=== PATIENT | female | born 1960 ===

== ENCOUNTER 2018-12-04 00:20 | Emergency (ER) | payer SELFPAY ==
[2018-12-04 00:39] VITALS: TEMP 98.8
[2018-12-04] MEDS ORDERED: Sodium Chloride 0.9% 1,000 ML IV STA (00:55)
[2018-12-04] MEDS ORDERED: Alum-Mag Hydrox-Simethicone Susp (30 mL) PO ONE (00:55)
[2018-12-04 01:32] LABS: BASO # 0.1 K/uL (0.0-0.2); BASO % 0.9 % (0.0-2.0); EOS # 0.1 K/uL (0.0-0.7); EOS % 1.5 % (0.0-4.0); HEMOGLOBIN 11.9 g/dL (12.0-16.0); LYMPH # 2.3 K/uL (1.0-4.3); MEAN CELL VOLUME 80.3 fl (81.0-99.0); MEAN CORPUSCULAR HEMOGLOBIN 25.9 pg (27.0-31.0); MEAN CORPUSCULAR HGB CONC 32.3 g/dL (33.0-37.0); MEAN PLATELET VOLUME 10.3 fl (7.2-11.7); MONO # 0.6 K/uL (0.0-0.8); MONO % 6.7 % (0.0-10.0); NEUT # 5.8 K/uL (1.8-7.0); NEUT % 64.9 % (50.0-75.0); NRBC % 0.2 % (0.0-0.0); RBC 4.58 Mil/uL (3.80-5.20); RED CELL DISTRIBUTION WIDTH 14.4 % (11.5-14.5)
[2018-12-04] MEDS ORDERED: Alum-Mag Hydrox-Simethicone Susp (30 mL) ONE (01:36)
[2018-12-04 01:39] LABS: ALB/GLOB RATIO 1.1 (1.0-2.1); ALBUMIN 4.7 g/dL (3.5-5.0); ALT/SGPT 142 U/L (9-52); AST/SGOT 444 U/L (14-36); BLOOD UREA NITROGEN 29 mg/dl (7-17); CALCIUM 10.4 mg/dL (8.4-10.2); GFR NON-AFRICAN AMERICAN > 60; LIPASE 267 U/L (23-300)
--- NOTE | 2018-12-04 01:47 | ED PDOC ---
HPI: Abdomen Time Seen by Provider: 12/04/18 00:39 Chief Complaint (Nursing): Abdominal Pain Chief Complaint (Provider): Abdominal Pain History Per: Patient History/Exam Limitations: no limitations Onset/Duration Of Symptoms: Hrs Additional Complaint(s): 58 y/o female with history of diabetes and HTN presents to the ED complaining of abdominal pain and distension. Patient reports she developed abdominal pain about 15 minutes after she had diner and it is associated with distension of her abdomen. Patient states she took alla seltzer with lemon and reports some improvement of symptoms. She denies vomiting, diarrhea, fever, chest pain, or shortness of breath. Past Medical History Reviewed: Historical Data, Nursing Documentation, Vital Signs Vital Signs: Last Vital Signs Temp 98.8 F 12/04/18 00:35 Pulse 106 H 12/04/18 00:35 Resp 18 12/04/18 00:35 BP 195/82 H 12/04/18 00:35 Pulse Ox 98 12/04/18 00:35 - Medical History PMH: Diabetes, HTN - Surgical History Surgical History: - Family History Family History: States: Unknown Family Hx - Social History Current smoker - smoking cessation education provided: No Alcohol: None Drugs: Denies - Home Medications Home Medications: Ambulatory Orders Medication Instructions Recorded Esomeprazole Magnesium [Nexium] 20 mg PO QAM #14 ecc 12/04/18 Ondansetron ODT [Zofran ODT] 4 mg PO Q6 PRN #10 odt 12/04/18 - Allergies Allergies/Adverse Reactions: Allergies Allergy/AdvReac Type Severity Reaction Status Date / Time No Known Allergies Allergy Verified 12/04/18 00:35 Review of Systems ROS Statement: Except As Marked, All Systems Reviewed And Found Negative Constitutional: Negative for: Fever Cardiovascular: Negative for: Chest Pain Respiratory: Negative for: Shortness of Breath Gastrointestinal: Positive for: Abdominal Pain. Negative for: Vomiting, Diarrhea Physical Exam - Reviewed Nursing Documentation Reviewed: Yes Vital Signs Reviewed: Yes - Physical Exam Appears: Positive for: Well, Non-toxic, No Acute Distress Head Exam: Positive for: ATRAUMATIC, NORMAL INSPECTION, NORMOCEPHALIC Skin: Positive for: Normal Color, Warm, DRY Eye Exam: Positive for: EOMI, Normal appearance, PERRL ENT: Positive for: Normal ENT Inspection Neck: Positive for: Normal, Painless ROM Cardiovascular/Chest: Positive for: Regular Rate, Rhythm. Negative for: Murmur Respiratory: Positive for: Normal Breath Sounds. Negative for: Respiratory Distress Gastrointestinal/Abdominal: Positive for: Tenderness (epigastric), Distended (mild) Back: Positive for: Normal Inspection Extremity: Positive for: Normal ROM. Negative for: Pedal Edema, Deformity Neurological/Psych: Positive for: Awake, Alert, Normal Tone. Negative for: Motor/Sensory Deficits - Laboratory Results Result Diagrams: 12/04/18 01:16 12/04/18 01:16 Lab Results: Total Bilirubin 0.5 mg/dl (0.2-1.3) 12/04/18 01:16 AST 444 U/L (14-36) H 12/04/18 01:16 ALT 142 U/L (9-52) H 12/04/18 01:16 Alkaline Phosphatase 162 U/L (38-126) H 12/04/18 01:16 Total Protein 9.0 G/DL (6.3-8.2) H 12/04/18 01:16 Albumin 4.7 g/dL (3.5-5.0) 12/04/18 01:16 Globulin 4.3 gm/dL (2.2-3.9) H 12/04/18 01:16 Albumin/Globulin Ratio 1.1 (1.0-2.1) 12/04/18 01:16 Lipase 267 U/L (23-300) 12/04/18 01:16 - ECG O2 Sat by Pulse Oximetry: 98 (RA) Pulse Ox Interpretation: Normal Medical Decision Making Medical Decision Making: Time:00:40 Initial Impression:58 y/o with acute epigastric pain and abdominal distension Initial Plan: * CT Abd Pelvis * Labs * Maalox 30 ml * IV Fluids * Pepcid 20 mg 03:43 CT Abd Pelvis COMMENTS: Distended bladder suggestive of retention. Fluid-filled distended stomach suggestive of gastroparesis. Constipation. Mild bilateral hydroureteronephrosis secondary to distended bladder. Hepatomegaly with hepatic steatosis. There is no intra or extrahepatic biliary ductal dilatation. The spleen is normal. The gallbladder is within normal limits. The pancreas is of normal contour and attenuation characteristics. There is no evidence of adrenal mass. Both kidneys demonstrate prompt and equal nephrograms. The kidneys are normal in size, shape and configuration. There is no evidence of renal or ureteral mass. No renal or ureteral calculi are identified. No evidence for appendicitis. There is no bowel wall thickening. No evidence for small or large bowel obstruction. There is no evidence of abdominal ascites or lymphadenopathy. There is no evidence of intrinsic or extrinsic bladder mass. There is no pelvic ascites or lymphadenopathy. Images of the lung bases show no evidence of pleural or parenchymal mass. There are no pleural effusions. The bony structures are free of lytic or blastic lesions. IMPRESSION: Distended bladder suggestive of retention. Fluid-filled distended stomach suggestive of gastroparesis. Constipation. Mild bilateral hydroureteronephrosis secondary to distended bladder. Hepatomegaly with hepatic steatosis. 04:46 Labs reviewed are significant for elevated hepatic function however patient states symptoms have resolved and she feels well enough for discharge. Patient will follow up with GI specialist. Diagnosis is gastritis. Scribe Attestation: Documented by Suraj Longoria, acting as a scribe forDrManda Olmstead MD Provider Scribe Attestation: All medical record entries made by the Scribe were at my direction and personally dictated by me. I have reviewed the chart and agree that the record accurately reflects my personal performance of the history, physical exam, medical decision making, and the department course for this patient. I have also personally directed, reviewed, and agree with the discharge instructions and disposition. Disposition - Clinical Impression Clinical Impression: Gastritis - Patient ED Disposition Is Patient to be Admitted: No - Disposition Referrals: Tyson Kaufman MD [Staff Provider] - Disposition Time: 04:46 Condition: STABLE Additional Instructions: KRISTAL VARGAS DE SAPP, thank you for letting us take care of you today. Your provider was Sarwat Olmstead MD and you were treated for ABD PAIN. The emergency medical care you received today was directed at your acute symptoms. If you were prescribed any medication, please fill it and take as directed. It may take several days for your symptoms to resolve. Return to the Emergency Department if your symptoms worsen, do not improve, or if you have any other problems. Please contact your doctor or call one of the physicians/clinics you have been referred to that are listed on the Patient Visit Information form that is included in your discharge packet. Bring any paperwork you were given at [facility] with you along with any medications you are taking to your follow up visit. Our treatment cannot replace ongoing medical care by a primary care provider outside of the emergency department. Thank you for allowing the [facility] team to be part of your care today. If you had an X-Ray or CT scan: A Radiologist will review the ED reading if any change in treatment is needed we will contact you. If you had a blood, urine, or wound culture: It will take several days for the results, if any change in treatment is needed we will contact you. If you had an STI test: It will take 48 hours for the results. Please call after 1 week if you have not heard back. Prescriptions: Esomeprazole Magnesium [Nexium] 20 mg PO QAM #14 ecc Ondansetron ODT [Zofran ODT] 4 mg PO Q6 PRN #10 odt PRN Reason: Nausea/Vomiting Instructions: Gastritis Forms: [employer] (Uzbek) Print Language: IRAQI
[2018-12-04] MEDS ORDERED: Iohexol 300 100 ML IJ ONE (02:25)
[2018-12-04] MEDS ORDERED: Sodium Chloride 0.9% 50 ML IV ONE (02:25)
[2018-12-04 06:28] VITALS: BP 157/91; PULSE 82; RESP 16; O2SAT 99
--- NOTE | 2018-12-04 13:52 | CT ---
Date of service: 12/04/2018 PROCEDURE: CT Abdomen and Pelvis with contrast HISTORY: abd pain/distension COMPARISON: None. TECHNIQUE: Contrast dose: 90 milliliters Radiation dose: Total exam DLP = 422.62 mGy-cm. This CT exam was performed using one or more of the following dose reduction techniques: Automated exposure control, adjustment of the mA and/or kV according to patient size, and/or use of iterative reconstruction technique. FINDINGS: LOWER THORAX: Unremarkable. LIVER: There is evidence of a moderately enlarged liver with diffuse fatty infiltration. No focal liver mass or intrahepatic ductal dilatation is seen. GALLBLADDER AND BILE DUCTS: Gallbladder is moderately decompressed without wall thickening or gallstones. Common bile duct is normal in size. PANCREAS: Unremarkable. No gross lesion or ductal dilatation. SPLEEN: Unremarkable. ADRENALS: Unremarkable. No mass. KIDNEYS AND URETERS: There is mild pelvocaliceal dilatation and prominence with dilatation of both ureters also seen extending to the level of the bladder which is distended. No significant perinephric changes are seen. No renal masses are noted. No renal calculi are seen. There is a double collecting system identified on the right and left with probable single distal ureter on the right and left. No appreciable ureteroceles are noted. VASCULATURE: Unremarkable. No aortic aneurysm. There is mild calcific atherosclerotic change of the aorta. BOWEL: Unremarkable. No obstruction. No gross mural thickening. APPENDIX: Normal appendix. PERITONEUM: No ascites is seen. No free intraperitoneal air is identified. LYMPH NODES: Unremarkable. No enlarged lymph nodes. BLADDER: Bladder is distended with secondary ureteral dilatation and pelvicaliceal prominence. REPRODUCTIVE: Uterus is normal in size. No adnexal masses are seen. BONES: No acute fracture. OTHER FINDINGS: Stomach is moderately distended with fluid and debris suggesting gastroparesis in the correct clinical setting. Duodenum is unremarkable. IMPRESSION: Distended urinary bladder with mild ureteral dilatation and pelvocaliceal prominence secondary to the distension. Bilateral double collecting systems and ureters which appear to merge distally. Distended stomach with debris which may suggest gastroparesis. No gastric masses are seen.
--- NOTE | 2018-12-05 18:48 | CARD ---
APPROVED REPORT Date of service: 12/04/2018 EKG Measurement Heart [id number] <Conclusion> Sinus tachycardia Otherwise normal ECG
== END 2018-12-04 05:27 | disposition home or self-care (01) ==
LOC: H.ER 00:20
DX: K29.70 Gastritis, unspecified, without bleeding (principal)
CPT/HCPCS: 74177; 80053; 83690; 85025; 93005; 99283; J7030; Q9967